=== PATIENT | female | born 1935 | race Caucasian/White ===

== ENCOUNTER 2021-04-02 13:02 | Outpatient (CLI) | payer MEDICARE, BC | END 2021-04-02 13:03 | disposition home or self-care (01) | LOC: CSHULT 13:02 | PROVIDERS: ATTEND Family Medicine | DX: N28.1 Cyst of kidney, acquired (principal); Z12.31 Encounter for screening mammogram for malignant neoplasm of breast | CPT/HCPCS: 76770; 77063; 77067 ==